=== PATIENT | male | born 1985 | race Caucasian/White ===

== ENCOUNTER 2022-10-17 08:29 | Outpatient (AMB) | payer OTHER, SELFPAY ==
--- NOTE | 2022-10-17 08:34 | MHC.OFFWIV ---
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 it would go away and come back really noticeable with movement. Patient Tobacco Use Status: Current everyday Tobacco user Accompanied by: Self / Same As Patient Allergies Penicillins Allergy (Severe, Verified 10/17/22 08:39) HIVES, SOB penicillin V Allergy (Unknown, Verified 10/17/22 08:39) shortness of breath quetiapine [Seroquel] Allergy (Unknown, Verified 10/17/22 08:39) shortness of breath risperidone [From RISPERDAL] Allergy (Unknown, Verified 10/17/22 08:39) AGITATION From SEROQUEL Allergy (Intermediate, Uncoded 03/30/21 16:26) DIFFICULTY BREATHING Do you need a note to return to daycare/school/sports/work: Yes HPI EP, Strain in Chest HPI Details 36-year-old male presents to the office for a sick visit. Patient is apprehensive and tense. He had an episode of chest pain this morning which lasted for a few minutes. The pain was worse on moving his left arm across his chest. No shortness of breath or diaphoresis. Patient denies using any illegal substance in the recent past. He admits to be quickly tapered off methadone a month ago. No history of heart disease in the past. [facility] Social History (System 03/30/21 @ 16:26 by [place]en [place]) Patient Tobacco Use Status: Current everyday Tobacco user Physical Exam Vital Signs: Last Vital Signs Temp 98.5 F 10/17/22 08:36 Pulse 80 10/17/22 08:36 BP 130/70 10/17/22 08:36 Pulse Ox 98 10/17/22 08:36 Oxygen Delivery Method Room Air 10/17/22 08:36 BMI result Body Mass Index 38.3 Const General: cooperative and healthy appearing Nutritional Appearance: well nourished Orientation/consciousness: patient oriented x3 Limitations: no limitations HEENT Head: Yes normal to inspection Eyes General: appearance normal, both eyes and all related structures Neck Neck: Yes normal visual inspection Chest Chest palpation & inspection: normal palpation of entire chest wall Resp Effort & Inspection: normal respiratory effort Neuro General: patient oriented x3 Office Procedures EKG Details: Normal sinus rhythm. [id number], Complete Assessment & Plan Assessment & Plan (1) Chest pain: Code(s): R07.9 - Chest pain, unspecified Plan: EKG was reviewed. Chest x-ray was personally reviewed by me. Patient was reassured that his symptoms could be most likely due to muscular origin. However if symptoms persist or recur, I encouraged him to go to the emergency room. Orders: Orders XR chest 2V Today R07.9 - Chest pain, unspecified AMB EKG-In Office Today R07.9 - Chest pain, unspecified Coding Level of Care Code Est Pt Level 4 (98434) Diagnoses Chest pain R07.9 CPT Codes EKG - CPT: 08955-[id number], Complete ([id number])
[2022-10-17 08:36] VITALS: BP 130/70; PULSE 80; TEMP 36.9; O2SAT 98; BMI 38.3
== END 2022-10-17 10:12 | disposition home or self-care (01) ==
PROVIDERS: Visit Provider Internal Medicine
DX: R07.9 Chest pain, unspecified (principal)
CPT/HCPCS: 93000; 99214

== ENCOUNTER 2022-10-17 09:06 | Outpatient (REF) | payer OTHER, SELFPAY ==
--- NOTE | ~2022-10-17 | XR_ITS ---
EXAMINATION: XR CHEST CLINICAL INFORMATION: Chest pain. COMPARISON: Chest radiographs dated 08/06/2018. TECHNIQUE: 2 views of the chest were obtained. FINDINGS: No significant abnormality is noted involving the heart, lungs, mediastinum, bony thorax or soft tissues. XR/XR chest 2V IMPRESSION: No acute cardiopulmonary process.
== END 2022-10-17 09:07 | disposition home or self-care (01) ==
LOC: HO.HMGCX 09:06
PROVIDERS: Visit Provider Internal Medicine
DX: R07.9 Chest pain, unspecified (principal)
CPT/HCPCS: 71046